=== PATIENT | female | born 1930 | race Native Hawaiian/Other Pacific Islander ===

== ENCOUNTER 2017-03-29 17:34 | Outpatient (CLI) | payer OTHER ==
[2017-03-29] MEDS ORDERED: PX OMEPRAZOLE20 MG OR (17:58)
[2017-03-29] MEDS ORDERED: NIFE30TA PO (17:58)
[2017-03-29] MEDS ORDERED: GABA300C2 PO (17:59)
[2017-03-29] MEDS ORDERED: JANUVIA100 MG PO (17:59)
[2017-03-29] MEDS ORDERED: LISI10TA11 PO (18:00)
[2017-03-29] MEDS ORDERED: SIMV40TA57 (18:00)
[2017-03-29] MEDS ORDERED: ROPINIROLE2 M1 PO (18:01)
[2017-03-29] MEDS ORDERED: HYDR10TA47 PO (18:02)
[2017-03-29] MEDS ORDERED: VITAMIN C1 CH1 PO (18:03)
[2017-03-29] MEDS ORDERED: ASCO500T18 PO (18:03)
[2017-03-29] MEDS ORDERED: VITAMIN D31000 UNI3 OR (18:03)
[2017-03-29] MEDS ORDERED: CALCIUM + D600 MG OR (18:04)
[2017-03-29] MEDS ORDERED: GLUCOSAMINE500 M3 OR (18:05)
[2017-03-29] MEDS ORDERED: CHONDROITIN OR (18:05)
[2017-03-29] MEDS ORDERED: [UNRECOGNIZED DRUG - OTHER] PO (18:06)
== END 2017-03-29 17:46 | disposition short-term general hospital (02) ==
LOC: AMB 17:34
DX: R07.81 Pleurodynia (principal); W01.0XXA Fall on same level from slipping, tripping and stumbling without subsequent striking against object, initial encounter; Y92.096 Garden or yard of other non-institutional residence as the place of occurrence of the external cause
CPT/HCPCS: A0425; A0429

== ENCOUNTER 2017-03-29 17:54 | Emergency (ER) | payer OTHER ==
[~2017-03-29] VITALS: Ht 167.6 cm; Wt 80.7 kg
[2017-03-29] MEDS ORDERED: PX OMEPRAZOLE20 MG OR (17:58)
[2017-03-29] MEDS ORDERED: NIFE30TA PO (17:58)
[2017-03-29] MEDS ORDERED: JANUVIA100 MG PO (17:59)
[2017-03-29] MEDS ORDERED: GABA300C2 PO (17:59)
[2017-03-29] MEDS ORDERED: LISI10TA11 PO (18:00)
[2017-03-29] MEDS ORDERED: SIMV40TA57 (18:00)
[2017-03-29] MEDS ORDERED: ROPINIROLE2 M1 PO (18:01)
[2017-03-29] MEDS ORDERED: HYDR10TA47 PO (18:02)
[2017-03-29] MEDS ORDERED: VITAMIN D31000 UNI3 OR (18:03)
[2017-03-29] MEDS ORDERED: VITAMIN C1 CH1 PO (18:03)
[2017-03-29] MEDS ORDERED: ASCO500T18 PO (18:03)
[2017-03-29] MEDS ORDERED: CALCIUM + D600 MG OR (18:04)
[2017-03-29] MEDS ORDERED: CHONDROITIN OR (18:05)
[2017-03-29] MEDS ORDERED: GLUCOSAMINE500 M3 OR (18:05)
[2017-03-29] MEDS ORDERED: [UNRECOGNIZED DRUG - OTHER] PO (18:06)
[2017-03-29 18:53] LABS: PLATELET COUNT 200 K/uL (152-353)
== END 2017-03-29 20:10 | disposition home or self-care (01) ==
LOC: ED 17:54
PROVIDERS: Specialist
DX: S09.8XXA Other specified injuries of head, initial encounter (principal); S22.41XA Multiple fractures of ribs, right side, initial encounter for closed fracture; W10.1XXA Fall (on)(from) sidewalk curb, initial encounter; Y92.098 Other place in other non-institutional residence as the place of occurrence of the external cause
CPT/HCPCS: 36415; 80048; 81000; 85027; 99283

== ENCOUNTER 2017-04-03 13:26 | Emergency (ER) | payer OTHER ==
[~2017-04-03] VITALS: Ht 167.6 cm; Wt 80.7 kg
[~2017-04-03 13:26] MED LIST: ASCO500T18 PO; CALCIUM + D600 MG OR; CHONDROITIN OR; GABA300C2 PO; GLUCOSAMINE500 M3 OR; HYDR10TA47 PO; JANUVIA100 MG PO; LISI10TA11 PO; NIFE30TA PO; PX OMEPRAZOLE20 MG OR; ROPINIROLE2 M1 PO; SIMV40TA57; VITAMIN C1 CH1 PO; VITAMIN D31000 UNI3 OR; [UNRECOGNIZED DRUG - OTHER] PO
== END 2017-04-03 15:14 | disposition home or self-care (01) ==
LOC: ED 13:26
DX: S79.911A Unspecified injury of right hip, initial encounter (principal); W19.XXXA Unspecified fall, initial encounter
CPT/HCPCS: 96372; 99283; J1885